=== PATIENT | female | born 1940 | race Caucasian/White ===

== ENCOUNTER 2017-11-14 07:45 | Day surgery (SDC) | payer OTHER ==
[2017-11-14] MEDS ORDERED: NA CHLORIDE 0.9% 250 ML ONE ×2 (08:05→11:25)
[2017-11-14 10:32] VITALS: O2SAT 100; BMI 33.2
[2017-11-14 15:23] VITALS: BP 150/41; TEMP 98.4
[2017-11-14 16:50] LABS: Hematocrit 31.2 % (36.0-45.0)
== END 2017-11-14 16:52 | disposition home or self-care (01) ==
LOC: DS 07:45
PROVIDERS: ATTEND Internal Medicine Hematology & Oncology
DX: D50.0 Iron deficiency anemia secondary to blood loss (chronic) (principal); D63.1 Anemia in chronic kidney disease
CPT/HCPCS: 36415; 36430; 85014; 85018; 86850; 86900; 86901; P9016 ×2